=== PATIENT | male | born 1955 | race Caucasian/White ===

== ENCOUNTER 2024-06-16 12:25 | Outpatient (CLI) | payer MEDICARE, BC | END 2024-06-16 23:59 | disposition home or self-care (01) | LOC: RAD 12:25 | PROVIDERS: ATTEND Internal Medicine | DX: I08.8 Other rheumatic multiple valve diseases (principal); R55 Syncope and collapse | CPT/HCPCS: 93306 ==

== ENCOUNTER 2024-08-12 08:20 | Outpatient (CLI) | payer MEDICARE, BC ==
[2024-08-12] VITALS (25 sets, daily range): BP systolic 94–126; BP diastolic 39–88; PULSE 61–101
== END 2024-08-12 23:59 | disposition home or self-care (01) ==
LOC: CARD DIAG 08:20
PROVIDERS: ATTEND Internal Medicine Interventional Cardiology
DX: R55 Syncope and collapse (principal)
CPT/HCPCS: 93660